=== PATIENT | male | born 1950 | race Caucasian/White ===

== ENCOUNTER 2016-10-10 05:34 | Day surgery (SDC) | payer MEDICAID ==
[2016-10-04 15:30] LABS: ANION GAP 12 mEq/L (8-16); CARBON DIOXIDE 24 mEq/l (22-31); CHLORIDE 105 mEq/L (97-110); CREATININE 1.1 mg/dL (0.7-1.3); GLOMERULAR FILTRATION RATE > 60; GLUCOSE 115 mg/dL (70-100); POTASSIUM 4.6 mEq/L (3.5-5.2); SODIUM 141 mEq/L (134-144)
[2016-10-10] MEDS ORDERED: PROPOFOL 200 MG/20 ML VIAL ONE ×2 (07:15→07:29)
[2016-10-10] MEDS ORDERED: LIDOCAINE 2% 100 MG/5 ML SYR IVP ONE (07:15)
--- NOTE | 2016-10-10 09:40 | GPN ---
PREPROCEDURE DIAGNOSIS: History of colon polyps. POSTPROCEDURE DIAGNOSIS: Colon polyps. PROCEDURE: 1. Colonoscopy with snare. 2. Colonoscopy with biopsy. MEDICATIONS: Monitored anesthesia care. INDICATIONS: The patient is a 66-year-old gentleman with a personal history of polyps. His last co lonoscopy was in 2013, which showed polyps. He is here for repeat surveillance colonoscopy. The ri sks and the benefits of the procedure were discussed the patient and consent obtained. Risks includ e, but not limited to, bleeding, perforation, and risks related to sedation. The patient is ASA cla ss 1. DESCRIPTION OF PROCEDURE: The adult colonoscope was advanced to the terminal ileum, which appeared normal. The appendiceal orifice, ileocecal valve, cecum, and ascending colon appear normal. The he patic flexure was normal. In the transverse colon, there are 3 polyps. The 1st polyp was removed w ith a cold snare polypectomy technique and measures 4 mm in maximal diameter. The polyps were retri eved for pathology. Two additional 1-2 mm polyps were removed using cold biopsy forceps and placed in the same bottle. The splenic flexure, descending colon, and sigmoid colon were normal. A small 1 mm polyp was seen in the rectum, which was removed using cold biopsy forceps and sent off to patho logy. Retroflexed views in the rectum were otherwise normal. IMPRESSION: Colon polyps, status post removal. RECOMMENDATIONS: 1. Discharge to home with escort. 2. Advance diet as tolerated. 3. Continue current medications. 4. Repeat colonoscopy based on pathology. If 3 or more polyps are found to be adenomatous, repeat colonoscopy in 3 years is recommended. If 1-2 polyps are found to be adenomatous, repeat colonoscop y in 5 years is recommended. 5. Follow up on final pathology results. Results available within 10 days. Thank you for allowing me to participate in the care of your patient. Please do not hesitate to sybil novoa with questions. /[id number]/MODL
== END 2016-10-10 08:45 | disposition home or self-care (01) ==
LOC: FSGY 05:34
PROVIDERS: ATTEND Internal Medicine Gastroenterology
PROC: 0DBL8ZX Excision of Transverse Colon, Via Natural or Artificial Opening Endoscopic, Diagnostic (ICD-10-PCS; principal; 2016-10-10 07:15)
PROC: 0DBP8ZX Excision of Rectum, Via Natural or Artificial Opening Endoscopic, Diagnostic (ICD-10-PCS; principal; 2016-10-10 07:15)
DX: K63.5 Polyp of colon (principal); K62.1 Rectal polyp; Z86.010 Personal history of colon polyps; E11.9 Type 2 diabetes mellitus without complications; I10 Essential (primary) hypertension; Z79.84 Long term (current) use of oral hypoglycemic drugs
CPT/HCPCS: J2001; J2704